=== PATIENT | female | born 1975 | race Caucasian/White ===

== ENCOUNTER 2018-02-10 05:10 | Emergency (ER) | payer MEDICAID, OTHER ==
[2018-02-10 05:17] VITALS: BP 155/106; PULSE 76; RESP 18; TEMP 98.7
--- NOTE | 2018-02-10 05:56 | ED ---
General Adult HPI - General Chief complaint: Extremity Injury, Lower Stated complaint: rt calf injury, IHS Time Seen by Provider: 02/10/18 05:51 Source: patient, RN notes reviewed, old records reviewed Mode of arrival: wheelchair Limitations: no limitations - History of Present Illness Initial comments: This is a 6-year-old female the ER for evaluation. Patient is a trip and fall injury. Patient states his right ankle hurts. No other injury or trauma noted. Follows mechanical - Related Data Home Medications Medication Instructions Recorded Confirmed Levothyroxine Sodium [Synthroid] 75 mcg PO DAILY 10/07/14 10/07/14 Triamterene-Hctz 37.5-25Mg 1 each PO DAILY 10/07/14 10/07/14 [Dyazide 37.5-25 Capsule] Previous Rx's Medication Instructions Recorded Ondansetron Odt [Zofran ODT] 4 mg PO Q8HR PRN #10 tab 10/07/14 Potassium Chloride ER [K-Dur 20] 20 meq PO DAILY #6 tab 10/07/14 Allergies Allergy/AdvReac Type Severity Reaction Status Date / Time Sulfa (Sulfonamide Allergy Unknown Verified 02/10/18 05:17 Antibiotics) Review of Systems ROS Statement: Those systems with pertinent positive or pertinent negative responses have been documented in the HPI. ROS Other: All systems not noted in ROS Statement are negative. Past Medical History Past Medical History: Hypertension, Thyroid Disorder History of Any Multi-Drug Resistant Organisms: None Reported Additional Past Surgical History / Comment(s): partial thyroidectomy Past Psychological History: No Psychological Hx Reported Smoking Status: Never smoker Past Alcohol Use History: Daily Past Drug Use History: Unable to Obtain General Exam Limitations: no limitations Course Vital Signs 02/10/18 05:15 Temperature 98.7 F Pulse Rate 76 Respiratory 18 Rate Blood Pressure 155/106 O2 Sat by Pulse 100 Oximetry Medical Decision Making - Medical Decision Making 42-year-old female the ER for evaluation of right knee sprain. Patient can be discharged home Disposition Clinical Impression: Sprain of left knee/leg Disposition: HOME SELF-CARE Condition: Good Instructions: Leg Sprain (ED) Is patient prescribed a controlled substance at d/c from ED?: No Referrals: Leena Connell MD [Primary Care Provider] - 1-2 days
== END 2018-02-10 06:05 | disposition home or self-care (01) ==
LOC: SUPCPDRO 05:10 → EC 05:10
DX: S83.91XA Sprain of unspecified site of right knee, initial encounter (principal); I10 Essential (primary) hypertension; E07.9 Disorder of thyroid, unspecified; Z79.899 Other long term (current) drug therapy; Z88.2 Allergy status to sulfonamides; W01.0XXA Fall on same level from slipping, tripping and stumbling without subsequent striking against object, initial encounter; Y99.0 Civilian activity done for income or pay
CPT/HCPCS: 99283

== ENCOUNTER → 2018-02-12 | Outpatient (CLI) | payer OTHER ==
--- NOTE | 2018-02-12 13:17 | XR ---
EXAMINATION TYPE: XR tibia fibula RT DATE OF EXAM: 02/12/2018 COMPARISON: NONE HISTORY: Pain from fall TECHNIQUE: 2 view right tibia and fibula FINDINGS: Joint spaces appear preserved. No acute fractures are evident. Soft tissues appear normal. Cortex appears intact. IMPRESSION: 1. Normal 2 view right tibia and fibula. 2. Follow-up exam can be performed 7-10 days from acute trauma for continued pain.
--- NOTE | 2018-02-12 13:31 | US ---
EXAMINATION TYPE: US venous doppler duplex LE RT DATE OF EXAM: 02/12/2018 1:21 PM COMPARISON: CLINICAL HISTORY: M60.861 Other myositis, right lower leg M79.604. Patient states falling Thursday. Right calf swelling. No hx of blood clots or on blood thinners. SIDE PERFORMED: Right TECHNIQUE: The lower extremity deep venous system is examined utilizing real time linear array sonog rose with graded compression, doppler sonography and color-flow sonography. VESSELS IMAGED: External Iliac Vein (EIV) Common Femoral Vein Deep Femoral Vein Greater Saphenous Vein * Femoral Vein Popliteal Vein Small Saphenous Vein * Proximal Calf Veins (* superficial vessels) Right Leg: Negative for DVT Grayscale, color doppler, spectral doppler imaging performed of the deep veins of the right lower ext remity. There is normal flow, compressibility, vascular waveforms. IMPRESSION: No ultrasound evidence for acute DVT in the right lower extremity.
== END | disposition home or self-care (01) ==
LOC: RADUSWWP 12:40
PROVIDERS: ATTEND Emergency Medicine
DX: M60.861 Other myositis, right lower leg (principal); M79.604 Pain in right leg

== ENCOUNTER 2018-02-16 16:02 | Emergency (ER) | payer MEDICAID, OTHER ==
[2018-02-16 16:11] VITALS: BP 145/85; PULSE 87; RESP 18; TEMP 98
--- NOTE | 2018-02-16 16:12 | ED ---
General Adult HPI - General Chief complaint: Recheck/Abnormal Lab/Rx Stated complaint: IHS-Revisit, Leg Coldness Time Seen by Provider: 02/16/18 16:12 Source: patient Mode of arrival: wheelchair Limitations: no limitations - History of Present Illness Initial comments: Patient with a history of a nonstick disease sent from [facility] for evaluation as DP pulse in the right foot was not palpable, reportedly had strong palpable right PT pulse, as well as strong pulses in the left leg. Patient states legs feel slightly cold bilaterally, with that's nothing new for her given her history of rhinitis. Patient had an injury to the leg 2 weeks ago when she felt a pop in her calf muscle. States x-rays were negative, venous Doppler is negative at that time. Patient denies any new injury, leg swelling, leg pain. Patient denies change in color, skin changes, numbness, weakness. - Related Data Home Medications Medication Instructions Recorded Confirmed Levothyroxine Sodium [Synthroid] 75 mcg PO DAILY 10/07/14 10/07/14 Triamterene-Hctz 37.5-25Mg 1 each PO DAILY 10/07/14 10/07/14 [Dyazide 37.5-25 Capsule] Previous Rx's Medication Instructions Recorded Ondansetron Odt [Zofran ODT] 4 mg PO Q8HR PRN #10 tab 10/07/14 Potassium Chloride ER [K-Dur 20] 20 meq PO DAILY #6 tab 10/07/14 Allergies Allergy/AdvReac Type Severity Reaction Status Date / Time Sulfa (Sulfonamide Allergy Unknown Verified 02/16/18 16:11 Antibiotics) Review of Systems ROS Statement: Those systems with pertinent positive or pertinent negative responses have been documented in the HPI. ROS Other: All systems not noted in ROS Statement are negative. 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 No acute distress. Well-appearing. Calm, pleasant, smiling. Well-groomed well-dressed. Limitations: no limitations General appearance: alert, in no apparent distress Head exam: Present: atraumatic, normocephalic Eye exam: Present: normal appearance, PERRL, EOMI ENT exam: Present: normal exam Neck exam: Present: normal inspection Respiratory exam: Present: normal lung sounds bilaterally. Absent: respiratory distress, wheezes, rales Cardiovascular Exam: Present: regular rate, normal rhythm GI/Abdominal exam: Present: soft. Absent: distended, tenderness Extremities exam: Present: normal inspection, full ROM, normal capillary refill , other (tenderness. No bony tenderness, deformities, edema appreciated. Cap refill less than 2 seconds in all toes. PT pulses +2 out of 4 bilaterally, DP pulse of the left foot +2 out of 4. Dopplerable biphasice DP pulse on the right foot. All compartments of right lower extremity soft.). Absent: tenderness, pedal edema, joint swelling, calf tenderness Neurological exam: Present: alert, oriented X3. Absent: motor sensory deficit Psychiatric exam: Present: normal affect, normal mood Skin exam: Absent: cyanosis, erythema Course Vital Signs 02/16/18 16:08 Temperature 98.0 F Pulse Rate 87 Respiratory 18 Rate Blood Pressure 145/85 O2 Sat by Pulse 98 Oximetry Medical Decision Making - Medical Decision Making Patient has palpable PT pulses bilaterally. Dopplerable biphasic DP pulse in the right foot. Cap refill less than 2 seconds in all toes. Patient completed x-rays and venous Doppler following injury, no new trauma to the leg. Patient states symptoms are consistent with her typical rating March, patient is on Concerta after symptoms at this time and feels comfortable being discharged home. No signs of compartment syndrome. No numbness or weakness or focal neural deficits in the leg. Patient agrees to return to ER immediately if numbness, weakness, increased pain, increased swelling occurs, or any other new or worsening symptoms. Patient to follow primary care physician one to 2 days for reevaluation. We'll discharge home. Patient is happy with plan of care. Disposition Clinical Impression: Well adult health check Disposition: HOME SELF-CARE Condition: Good Instructions: Raynaud Disease (ED), Leg Pain (ED) Additional Instructions: Return to ER immediately if decreased temperature in the leg, swelling, increased pain, numbness, weakness. Is patient prescribed a controlled substance at d/c from ED?: No Referrals: Jose Morales MD [Primary Care Provider] - 1-2 days
== END 2018-02-16 16:37 | disposition home or self-care (01) ==
LOC: EC 16:02
DX: Z00.00 Encounter for general adult medical examination without abnormal findings (principal); I10 Essential (primary) hypertension; E07.9 Disorder of thyroid, unspecified; I73.00 Raynaud's syndrome without gangrene; Z79.899 Other long term (current) drug therapy; Z88.2 Allergy status to sulfonamides
CPT/HCPCS: 99283

== ENCOUNTER 2020-11-20 | Emergency (ER) | payer MEDICAID ==
[2020-11-20 00:11] VITALS: RESP 18; TEMP 97.6
[2020-11-20] MEDS ORDERED: SODIUM CHLORIDE 0.9% 1,000 ML IV STA (00:19)
[2020-11-20] MEDS ORDERED: ONDANSETRON 4 MG/2 ML VIAL IVP STA (00:19)
--- NOTE | 2020-11-20 00:34 | ED ---
General Adult HPI - General Chief complaint: Abdominal Pain Stated complaint: Abdominal Pain Source: patient, RN notes reviewed Mode of arrival: ambulatory Limitations: no limitations - History of Present Illness Initial comments: 45-year-old female presents to the emergency room for a chief complaint of abdominal pain. Patient has had abdominal pain since about 10:30 this morning. States she has had this pain in the past but it usually resolves. Patient states it starts in the lower quadrant and then radiates to the upper quadrant. Patient does admit to nausea but denies vomiting. Patient denies fevers. Denies diarrhea. Patient states walking around worsens her pain. Patient has no other complaints at this time including shortness of breath, chest pain, vomiting, headache, or visual changes. - Related Data Home Medications Medication Instructions Recorded Confirmed Levothyroxine Sodium [Synthroid] 75 mcg PO DAILY 10/07/14 10/07/14 Triamterene-Hctz 37.5-25Mg 1 each PO DAILY 10/07/14 10/07/14 [Dyazide 37.5-25 Capsule] Previous Rx's Medication Instructions Recorded Ondansetron Odt [Zofran ODT] 4 mg PO Q8HR PRN #10 tab 10/07/14 Potassium Chloride ER [K-Dur 20] 20 meq PO DAILY #6 tab 10/07/14 Allergies Allergy/AdvReac Type Severity Reaction Status Date / Time Sulfa (Sulfonamide Allergy Unknown Verified 02/16/18 16:11 Antibiotics) Review of Systems ROS Statement: Those systems with pertinent positive or pertinent negative responses have been documented in the HPI. ROS Other: All systems not noted in ROS Statement are negative. 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 Absent: scleral icterus, conjunctival injection, periorbital swelling ENT exam: Present: normal exam, mucous membranes moist Neck exam: Present: normal inspection, full ROM. Absent: tenderness, meningismus, lymphadenopathy Respiratory exam: Present: normal lung sounds bilaterally. Absent: respiratory distress, wheezes, rales, rhonchi, stridor Cardiovascular Exam: Present: regular rate, normal rhythm, normal heart sounds. Absent: systolic murmur, diastolic murmur, rubs, gallop, clicks GI/Abdominal exam: Present: soft, tenderness (mild LLQ tenderness), normal bowel sounds. Absent: distended, guarding, rebound, rigid Course Vital Signs 11/20/20 11/20/20 00:07 03:43 Temperature 97.6 F Pulse Rate 62 65 Respiratory 18 18 Rate Blood Pressure 110/73 140/81 O2 Sat by Pulse 100 98 Oximetry Medical Decision Making - Medical Decision Making Vitals are stable. HPI and physical exam as documented. CBC CMP unremarkable urinalysis does show 10 red blood cells, patient reports she is on her period. CT abdomen and pelvis with contrast does show a large cystic structure in the midline lower abdomen potentially ovarian, measuring 18 cm. Patient does not have an OBGYN. Dr. Fontanez consulted with Dr. Parry, recommending transfer for binding folder machine/onc. [facility] did accept transfer. - Lab Data Result diagrams: 11/20/20 00:41 11/20/20 00:41 Lab Results 11/20/20 11/20/20 11/20/20 Range/Units 00:17 00:17 00:41 WBC 12.9 H (3.8-10.6) k/uL RBC 4.82 (3.80-5.40) m/uL Hgb 11.4 (11.4-16.0) gm/dL Hct 35.1 (34.0-46.0) % MCV 72.8 L (80.0-100.0) fL MCH 23.6 L (25.0-35.0) pg MCHC 32.4 (31.0-37.0) g/dL RDW 15.2 (11.5-15.5) % Plt Count 319 (150-450) k/uL MPV 8.3 Neutrophils % 85 % Lymphocytes % 12 % Monocytes % 2 % Eosinophils % 1 % Basophils % 0 % Neutrophils # 10.9 H (1.3-7.7) k/uL Lymphocytes # 1.5 (1.0-4.8) k/uL Monocytes # 0.3 (0-1.0) k/uL Eosinophils # 0.1 (0-0.7) k/uL Basophils # 0.0 (0-0.2) k/uL Hypochromasia Moderate Microcytosis Slight Sodium (137-145) mmol/L Potassium (3.5-5.1) mmol/L Chloride (98-107) mmol/L Carbon Dioxide (22-30) mmol/L Anion Gap mmol/L BUN (7-17) mg/dL Creatinine (0.52-1.04) mg/dL Est GFR (CKD-EPI)AfAm (>60 ml/min/1.73 sqM) Est GFR (CKD-EPI)NonAf (>60 ml/min/1.73 sqM) Glucose (74-99) mg/dL Calcium (8.4-10.2) mg/dL Total Bilirubin (0.2-1.3) mg/dL AST (14-36) U/L ALT (4-34) U/L Alkaline Phosphatase (38-126) U/L Total Protein (6.3-8.2) g/dL Albumin (3.5-5.0) g/dL Amylase (30-110) U/L Lipase (23-300) U/L Urine Color Yellow Urine Appearance Clear (Clear) Urine pH 8.0 (5.0-8.0) Ur Specific [place] 1.020 (1.001-1.035) Urine Protein Negative (Negative) Urine Glucose (UA) Negative (Negative) Urine Ketones Negative (Negative) Urine Blood Small H (Negative) Urine Nitrite Negative (Negative) Urine Bilirubin Negative (Negative) Urine Urobilinogen <2.0 (<2.0) mg/dL Ur Leukocyte Esterase Negative (Negative) Urine RBC 10 H (0-5) /hpf Urine WBC 1 (0-5) /hpf Ur Squamous Epith Cells <1 (0-4) /hpf Amorphous Sediment Rare H (None) /hpf Hyaline Casts 1 (0-2) /lpf Urine Mucus Occasional H (None) /hpf Urine HCG, Qual Not Detected (Not Detectd) 11/20/20 Range/Units 00:41 WBC (3.8-10.6) k/uL RBC (3.80-5.40) m/uL Hgb (11.4-16.0) gm/dL Hct (34.0-46.0) % MCV (80.0-100.0) fL MCH (25.0-35.0) pg MCHC (31.0-37.0) g/dL RDW (11.5-15.5) % Plt Count (150-450) k/uL MPV Neutrophils % % Lymphocytes % % Monocytes % % Eosinophils % % Basophils % % Neutrophils # (1.3-7.7) k/uL Lymphocytes # (1.0-4.8) k/uL Monocytes # (0-1.0) k/uL Eosinophils # (0-0.7) k/uL Basophils # (0-0.2) k/uL Hypochromasia Microcytosis Sodium 137 (137-145) mmol/L Potassium 3.7 (3.5-5.1) mmol/L Chloride 100 (98-107) mmol/L Carbon Dioxide 27 (22-30) mmol/L Anion Gap 10 mmol/L BUN 10 (7-17) mg/dL Creatinine 0.75 (0.52-1.04) mg/dL Est GFR (CKD-EPI)AfAm >90 (>60 ml/min/1.73 sqM) Est GFR (CKD-EPI)NonAf >90 (>60 ml/min/1.73 sqM) Glucose 120 H (74-99) mg/dL Calcium 9.3 (8.4-10.2) mg/dL Total Bilirubin 0.6 (0.2-1.3) mg/dL AST 22 (14-36) U/L ALT 21 (4-34) U/L Alkaline Phosphatase 90 (38-126) U/L Total Protein 7.5 (6.3-8.2) g/dL Albumin 4.3 (3.5-5.0) g/dL Amylase 64 (30-110) U/L Lipase 127 (23-300) U/L Urine Color Urine Appearance (Clear) Urine pH (5.0-8.0) Ur Specific [place] (1.001-1.035) Urine Protein (Negative) Urine Glucose (UA) (Negative) Urine Ketones (Negative) Urine Blood (Negative) Urine Nitrite (Negative) Urine Bilirubin (Negative) Urine Urobilinogen (<2.0) mg/dL Ur Leukocyte Esterase (Negative) Urine RBC (0-5) /hpf Urine WBC (0-5) /hpf Ur Squamous Epith Cells (0-4) /hpf Amorphous Sediment (None) /hpf Hyaline Casts (0-2) /lpf Urine Mucus (None) /hpf Urine HCG, Qual (Not Detectd) Disposition Clinical Impression: Ovarian cystic mass Disposition: OTHER INSTITUTION NOT DEFINED Condition: Fair Instructions (If sedation given, give patient instructions): Ovarian Cyst (ED) Additional Instructions: Please go directly to [facility] ER Is patient prescribed a controlled substance at d/c from ED?: No Referrals: Jose Morales MD [Primary Care Provider] - 1-2 days Time of Disposition: 03:45 - Out of Hospital Transfer - Req. Specs Out of Hospital Transfer - Requested Specifics: Other Emergency Center ([facility])
[2020-11-20 00:39] LABS: Amorphous Sediment,Urine Rare /hpf; Appearance,Urine Clear (Clear); Bilirubin,Urine Negative (Negative); Blood,Urine Small (Negative); Color,Urine Yellow; Glucose,Urine (UA) Negative (Negative); Hyaline Casts,Urine 1 /lpf (0-2); Ketones,Urine Negative (Negative); Leukocyte Esterase,Urine Negative (Negative); Mucus,Urine Occasional /hpf; Nitrite,Urine Negative (Negative); Protein,Urine Negative (Negative); RBC,Urine 10 /hpf (0-5); Squamous Epithelial Cell,Urine <1 /hpf (0-4); Urobilinogen,Urine <2.0 mg/dL (<2.0); WBC,Urine 1 /hpf (0-5)
[2020-11-20] MEDS ORDERED: KETOROLAC 15 MG/ML 1 ML VIAL IVP STA (01:08)
[2020-11-20 01:13] LABS: Basophils % (A) 0 %; Eosinophils # (A) 0.1 k/uL (0-0.7); Eosinophils % (A) 1 %; HCT 35.1 % (34.0-46.0); HGB 11.4 gm/dL (11.4-16.0); Hypochromasia Moderate; Lymphocytes # (A) 1.5 k/uL (1.0-4.8); Lymphocytes % (A) 12 %; MCH 23.6 pg (25.0-35.0); MCHC 32.4 g/dL (31.0-37.0); MCV 72.8 fL (80.0-100.0); Mean Platelet Volume 8.3; Microcytosis Slight; Monocytes # (A) 0.3 k/uL (0-1.0); Monocytes % (A) 2 %; Neutrophils # (A) 10.9 k/uL (1.3-7.7); Neutrophils % (A) 85 %; Platelet Count 319 k/uL (150-450); RBC 4.82 m/uL (3.80-5.40); RDW 15.2 % (11.5-15.5); WBC 12.9 k/uL (3.8-10.6)
[2020-11-20 01:56] LABS: ALT 21 U/L (4-34); AST 22 U/L (14-36); African American GFR (CKD) >90 (>60 ml/min/1.73 sqM); Albumin 4.3 g/dL (3.5-5.0); Alkaline Phosphatase 90 U/L (38-126); Amylase 64 U/L (30-110); Anion Gap 10 mmol/L; Blood Urea Nitrogen 10 mg/dL (7-17); Calcium 9.3 mg/dL (8.4-10.2); Carbon Dioxide 27 mmol/L (22-30); Chloride 100 mmol/L (98-107); Glucose 120 mg/dL (74-99); Lipase 127 U/L (23-300); Non-African American GFR(CKD) >90 (>60 ml/min/1.73 sqM); Potassium 3.7 mmol/L (3.5-5.1); Sodium 137 mmol/L (137-145); Total Bilirubin 0.6 mg/dL (0.2-1.3); Total Protein 7.5 g/dL (6.3-8.2)
--- NOTE | 2020-11-20 03:04 | CT ---
EXAM: CT Abdomen and Pelvis With Intravenous Contrast CLINICAL HISTORY: ITS.REASON CT Reason: pain TECHNIQUE: Axial computed tomography images of the abdomen and pelvis with intravenous contrast. CTDI is 46.07 mGy and DLP is 2320.5 mGy-cm. This CT exam was performed using one or more of the following dose reduction techniques: automated exposure control, adjustment of the mA and/or kV according to patient size, and/or use of iterative reconstruction technique. COMPARISON: No relevant prior studies available. FINDINGS: Lung bases: Question small pulmonary nodules. Optional followup imaging in 12 months may be considered in a high-risk patient. ABDOMEN: Liver: Enlarged fatty liver. Gallbladder and bile ducts: Unremarkable. Pancreas: Unremarkable. Spleen: Mild splenomegaly. Adrenals: Unremarkable. Kidneys and ureters: Bilateral renal hypodensities. Subcentimeter indeterminate lesions also noted. Stomach and bowel: Fluid and air in the small bowel, query ileus or enteritis. Mild rectosigmoid wall thickening or underdistention. PELVIS: Appendix: Normal caliber appendix. Bladder: Unremarkable. Reproductive: Incompletely visualized mottled material in the vaginal region. Differential considerations include tampon/foreign body, debris, or fecal material. ABDOMEN and PELVIS: Intraperitoneal space: Large cystic structure in the midline lower abdomen measuring approximately 18 x 13 x 16 cm, potentially ovarian. Bones/joints: Degenerative changes. Soft tissues: Fat-containing umbilical hernia. Vasculature: Unremarkable. Lymph nodes: Small nonspecific mesenteric and retroperitoneal lymph nodes. IMPRESSION: 1. Large cystic structure in the midline lower abdomen, potentially ovarian. Ultrasound can further evaluate if there is concern for ovarian torsion. Consider MRI and/or surgical consultation. 2. Small indeterminate renal lesions. Compare to prior imaging if available or consider followup. 3. Additional findings, as above.
[2020-11-20] MEDS ORDERED: HYDROmorphone 0.5 MG/0.5 ML SYRINGE IVP STA (03:26)
[2020-11-20 03:47] VITALS: BP 140/81; PULSE 65
== END 2020-11-20 04:20 | disposition other institution (70) ==
LOC: EC
DX: N83.209 Unspecified ovarian cyst, unspecified side (principal); E07.9 Disorder of thyroid, unspecified; Z79.899 Other long term (current) drug therapy; Z79.890 Hormone replacement therapy; Z88.2 Allergy status to sulfonamides
CPT/HCPCS: 96374; 96375 ×2; 96361; 36415; 80053; 82150; 83690; 85025; 81001; 81025; 74177; 99285; J2405; J1885; J1170; Q9967